=== PATIENT | male | born 2000 | race Two or more races ===

== ENCOUNTER 2018-05-12 21:00 | Emergency (ER) | payer BC, MEDICAID ==
--- NOTE | 2018-05-12 23:36 | ED Physician Documentation ---
PD HPI MHE - Stated complaint Stated Complaint: MHE - Chief complaint Chief Complaint: MHE - History obtained from History obtained from: Patient - History of Present Illness Primary symptom: Other (made off hand comment in joking that he there was 21 days until he killed himself.) Similar symptoms before: Has not had sx before Recently seen: Not recently seen - Additional information Additional information: 17-year-old male who has been living at [facility] since January of this year was getting ready to do his laundry and he had been playing some basketball and he made an offhand comment to another client at the facility saying that he had 21 days until he was going to "kill himself ". This was overheard and the staff at [facility] has insisted the patient comes to the emergency department for evaluation. The patient denies ever having any suicidal ideation he has never had prior psychiatric history and he denies any current plan or reason for suicide. He states that he is actively seeking employment on the [place] and getting ready to do his laundry tonight. He is also actively pursuing his GED. He feels the services available at [facility] are excellent and he is very happy with where he is at right now. He is remorse about having said this and realizes that the staff are "just doing her job". Review of Systems Constitutional: denies: Fever Ears: denies: Ear pain Nose: denies: Rhinorrhea / runny nose, Congestion Throat: denies: Sore throat Cardiac: denies: Chest pain / pressure, Palpitations Respiratory: denies: Dyspnea, Cough GI: denies: Abdominal Pain, Nausea, Vomiting, Constipation, Diarrhea : denies: Dysuria, Frequency Skin: denies: Rash, Lesions Musculoskeletal: denies: Neck pain, Back pain, Extremity pain Neurologic: denies: Generalized weakness, Focal weakness, Numbness, Headache, Head injury Psychiatric: denies: Depressed, Suicidal, Homicidal, Hallucinations, Delusions, Anxiety, Insomnia PD PAST MEDICAL HISTORY - Past Medical History Past Medical History: No - Past Surgical History Past Surgical History: No - Present Medications Home Medications: Ambulatory Orders Medication Instructions Recorded Confirmed No Known Home Medications [No 05/12/18 05/12/18 Known Home Medications] - Allergies Allergies/Adverse Reactions: Allergies Allergy/AdvReac Type Severity Reaction Status Date / Time No Known Drug Allergies Allergy Verified 05/12/18 21:09 - Social History Does the pt smoke?: No Smoking Status: Never smoker Does the pt drink ETOH?: No Does the pt have substance abuse?: No - Immunizations Immunizations are current?: Yes - POLST Patient has POLST: No PD ED PE NORMAL - Vitals Vital signs reviewed: Yes (hypertensive mild ) - General General: Alert and oriented X 3, No acute distress, Well developed/nourished - HEENT HEENT: Atraumatic, PERRL, EOMI, Ears normal, Moist mucous membranes, Pharynx benign, Dentition benign - Neck Neck: Supple, no meningeal sign, No bony TTP - Cardiac Cardiac: RRR, No murmur - Respiratory Respiratory: No respiratory distress, Clear bilaterally - Abdomen Abdomen: Normal bowel sounds, Soft, Non tender, Non distended, No organomegaly - Back Back: No CVA TTP, No spinal TTP - Derm Derm: Normal color, Warm and dry, No rash - Extremities Extremities: No deformity, No edema - Neuro Neuro: Alert and oriented X 3, 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, No motor deficit, No sensory deficit, Normal speech Eye Opening: Spontaneous Motor: Obeys Commands Verbal: Oriented GCS Score: 15 - Psych Psych: Normal mood, Normal affect Results - Vitals Vitals: Vital Signs - 24 hr 05/12/18 05/12/18 21:03 23:46 Temperature 36.2 C L 36.0 C L Heart Rate 100 80 Respiratory 16 16 Rate Blood Pressure 156/73 H 128/70 O2 Saturation 100 100 Oxygen O2 Source Room air PD MEDICAL DECISION MAKING - ED course Complexity details: re-evaluated patient, considered differential, d/w patient ED course: 17-year-old male appears to have fair support at the [employer] and he does sound like he appreciates the help he is getting there and does not feel in any way depressed or suicidal. He did make an offhand comment that he did not mean in any literal sense and he is denying any intentions. He is doing multiple things would suggest that he is planning for the future including searching for a job in getting ready to his laundry. He will have a review of his resources in 21 days and he does plan on being able to have a job by that time. I take patient has his word on his feelings and I do not feel that further evaluation for suicidal ideation is necessary. - Sepsis Event Vital Signs: Vital Signs - 24 hr 05/12/18 05/12/18 21:03 23:46 Temperature 36.2 C L 36.0 C L Heart Rate 100 80 Respiratory 16 16 Rate Blood Pressure 156/73 H 128/70 O2 Saturation 100 100 Oxygen O2 Source Room air Departure - Departure Disposition: 01 Home, Self Care Clinical Impression: Well adult Condition: Stable Instructions: ED Stress React Follow-Up: [facility] [Provider Group] Discharge Date/Time: 05/12/18 23:46
[2018-05-12 23:47] VITALS: BP 128/70
== END 2018-05-12 23:46 | disposition home or self-care (01) ==
LOC: ED 21:00
DX: Z00.8 Encounter for other general examination (principal)
CPT/HCPCS: 99282; 99283